=== PATIENT | male | born 1945 | race Caucasian/White ===

== ENCOUNTER 2019-03-10 22:36 | Inpatient (IN) ==
[2019-03-11] MEDS ORDERED: Naloxone 0.4 MG/ML INJ IVP PRN (05:17)
[2019-03-11] MEDS ORDERED: Dextrose Gel 15 GM/37.5 ML TUBE PO PRN ×2 (05:17)
[2019-03-11] MEDS ORDERED: D5% in Water 1,000 ML IVC PRN (05:17)
[2019-03-11] MEDS ORDERED: Acetaminophen 325 MG TABLET PO PRN (05:17)
[2019-03-11] MEDS ORDERED: *HR* Dextrose 50 % in Water (Syg) 50 ML SYRINGE IVP PRN (05:17)
--- NOTE | 2019-03-11 05:29 | Internal Med History&Physical ---
Date of Encounter: 03/11/19 Time of Encounter: 04:30 Internal Medicine - H&P: HPI Chief complaint: right sided weakness/numbness; speech difficulty Admitted From: Hospital to Hospital Transfer Plans for Post Hospital Care: Home History of present illness: Mr. Montgomery is a 73 year old male who presents in transfer from [facility] ER for concerns of stroke/TIA. He presented there last evening with acute onset of right-sided weakness, numbness, and paresthesias in his right hand and arm. This was followed by difficulty with his speech and slurred speech. Symptoms lasted about 5-10 minutes and resolved spontaneously. His called EMS and brought him to the ER. Workup in the ER there was reportedly negative, but I have no lab results other than CT report of the head. Transfer request was made to [place] for further workup and care. Prior to transfer to [place], stroke alert consult was done with [facility] who recommended workup with MRI and further stroke orders. Patient was not a candidate for TPA and/or transport to [facility]. Upon arrival to [place], I saw and examined patient shortly after his arrival. He has complete resolution of his symptoms now. He confirms the above history. He does have prior history of old stroke. He also is diabetic. He also has history of carotid stenosis of his left side requiring carotid endarterectomy. He denies any chest pain, shortness of breath, or any residual neurologic deficits presently. He is a nonsmoker. He does not drink alcohol. His risk factors for stroke include diabetes, hypertension, and prior stroke. Past Med Surg Social Fam HX - Past Medical History Attestation: Yes The following information was validated with the patient. Source: patient, other (limited records from [facility]) Medical history: CVA, diabetes, hypertension Additional medical history: AAA that is being monitored, ischemic bowel resection, surgical infection Psychiatric history: anxiety - Past Surgical History Surgical History: carotid endarterectomy, colectomy Additional surgical history: back surgery, anitra carpal tunnel surgery, left carotid endarterectomy - Social History Smoking Status: Never smoker Smokeless Tobacco Status: No Alcohol use: none Drug use: none Current living situation: Home, With Family Activity Level: Independent ambulation Recent Out of Country Travel Within the Last 8 Weeks: No - Family History Mother Living Status: Cause of : Aortic Aneurysm and heart problems Father Living Status: Cause of : [place] Internal Medicine - H&P: Meds Allergy/AdvReac Type Severity Reaction Status Date / Time ciprofloxacin [From Cipro] Allergy Rash Verified 03/11/19 05:08 morphine Allergy Hallucinati Verified 03/11/19 05:08 ng Penicillins Allergy Swelling Verified 03/11/19 05:08 of Lip/Tongue/Throat - Constitutional Constitutional: no chills, no fever(s), no night sweats - EENT Eyes: no blurry vision, no change in vision Ears: no ear pain, no tinnitus Nose, mouth and throat: no nasal congestion, no sinus pressure, no sore throat - Cardiovascular Cardiovascular ROS IM: no chest pain, no dyspnea, no dyspnea on exertion, no edema, no orthopnea, no syncope - Respiratory Respiratory: no cough, no hemoptysis, no chest congestion, no excessive phlegm production, no change in phlegm color, no pain with cough - Gastrointestinal Gastrointestinal: no abdominal pain, no diarrhea, no hematemesis, no hematochezia, no melena, no nausea, no vomiting - Genitourinary Genitourinary ROS male: no dysuria, no flank pain, no hematuria - Musculoskeletal Musculoskeletal ROS IM: no arthralgias, no back pain, no myalgias - Integumentary Integumentary IM: no rash, no jaundice - Neurological Neurological ROS: abnormal speech, focal weakness, paresthesias, no convulsions, no disequilibrium, no dizziness, no frequent falls, no headache(s) Additional comments: all symptoms resolved within 10 minutes of symptom onset - Psychiatric Psychiatric: no anxiety, no depression - Endocrine Endocrine IM: no cold intolerance, no heat intolerance, no polydipsia, no polyphagia, no polyuria - Allergic/Immunologic Allergic/Immunologic: no GI upset with certain foods - Constitutional Vitals: Temp Pulse Resp BP Pulse Ox 97.9 F 71 16 160/76 96 03/11/19 04:43 03/11/19 04:43 03/11/19 04:43 03/11/19 04:43 03/11/19 04:43 General appearance: Present: cooperative, A&O X 3, pleasant, answers questions appropriately Exam: see below - Head Head exam: Present: atraumatic, normal inspection - Eye Eye exam: Present: EOMI, PERRL. Absent: scleral icterus Pupils: Present: normal accommodation - ENT ENT exam: Present: mucous membranes dry, normal exam, normal oropharynx - Neck Neck exam general surgery: Present: full ROM, supple, trachea midline. Absent: lymphadenopathy, tenderness, nuchal rigidity, thyromegaly - Expanded Neck Exam Neck exam: Present: carotid bruit (left) - Respiratory Respiratory exam: Present: CTAB. Absent: chest wall tenderness, rales, rhonchi, wheezes - Cardiovascular Cardiovascular exam: Present: RRR, +S1, +S2. Absent: diastolic murmur, systolic murmur - GI/Abdominal GI/Abdominal exam: Present: soft. Absent: guarding, hepatomegaly, mass, rebound, splenomegaly, tenderness - Extremities Exam Extremities exam: Present: full ROM, normal capillary refill, warm, radial pulses palpable and symmetrical. Absent: calf tenderness, joint swelling, pedal edema, tenderness - Back Exam Back exam: Absent: CVA tenderness (L), CVA tenderness (R) - Neurological Exam Neurological exam: Present: alert, CN II-XII intact, oriented X3, no focal deficits, strengths equal and symetr throughout. Absent: speech deficit Additional comments: no focal deficits - Psychiatric Psychiatric exam: Present: normal affect, normal mood - Skin Skin exam: Present: dry, intact, warm Internal Med - H&P Results - Labs Labs: I was unable to find any documented lab results from [place]. The exception is CT of the head which showed no acute intracranial abnormality. - Assessment and Plan (1) TIA (transient ischemic attack) Current Visit: Yes Status: Acute Assessment and plan: 1. Symptoms resolved prior to his presentation to ER. 2. Will proceed with stroke protocol. 3. MRI brain, ECHO, Carotid Dopplers. 4. Monitor glucose closely. 5. Monitor on telemetry and obtain baseline EKG. 6. Routine labs and lipid profile ordered. (2) Type 2 diabetes mellitus Current Visit: Yes Status: Chronic Assessment and plan: 1. Will place on SSI and monitor glucose closely. 2. Need to verify home meds and resume as appropriate and safe. Qualifiers: Diabetes mellitus organisation and methods analyst insulin use: without organisation and methods analyst use Diabetes mellitus complication status: with circulatory complication Diabetes mellitus complication detail: with other circulatory complications Qualified Code(s): E11.59 - Type 2 diabetes mellitus with other circulatory complications (3) Hypertension Current Visit: Yes Status: Chronic Assessment and plan: 1. Need to obtain home med list and resume as appropriate. 2. Monitor BP closely and consider starting BP meds if significantly elevated. Qualifiers: Hypertension type: essential hypertension Qualified Code(s): I10 - Essential (primary) hypertension (4) DVT prophylaxis Current Visit: Yes Status: Acute Assessment and plan: 1. Heparin SQ.
[2019-03-11 05:53] LABS: Basophils % 0.5 %; Eosinophils # 0.4 K/mcL (0.0-0.6); Eosinophils % 4.5 %; Hematocrit 41.4 % (37.5-50.1); Hemoglobin 13.6 g/dL (12.9-16.9); Immature Granulocytes % 0.2 % (0-4); Lymphocytes # 2.6 K/mcL (0.6-4.6); Lymphocytes % 30.6 %; Mean Corpuscular HGB Conc 32.9 g/dL (31.6-35.5); Mean Corpuscular Hemoglobin 30.8 pg (28.0-33.3); Mean Corpuscular Volume 93.9 fL (83.0-100.0); Mean Platelet Volume 10.3 fL (9.4-12.4); Monocytes # 0.6 K/mcL (0.0-1.3); Monocytes % 7.5 %; Neutrophils # 4.8 K/mcL (1.6-8.9); Platelet Count 175 K/mcL (140-400); Red Blood Count 4.41 M/mcL (4.19-5.50); Red Cell Distribution Width 13.6 % (11.5-14.5); Segmented Neutrophils % 56.7 %
[2019-03-11 06:01] LABS: INR 1.1; Prothrombin Time 12.4 Seconds (9.4-12.1)
[2019-03-11 06:09] LABS: Albumin 4.3 g/dL (3.5-5.7); Albumin/Globulin Ratio 1.4 (1.1-2.2); Bilirubin,Total 0.5 mg/dL (0.3-1.0); Calcium 10.2 mg/dL (8.6-10.3); Chol/HDL Ratio 3.8 (0-4.9); Magnesium 1.7 mg/dL (1.6-2.6); Phosphorous 3.7 mg/dL (2.7-4.5); Total Protein 7.3 g/dL (6.4-8.9)
[2019-03-11 06:10] LABS: Estimated Average Glucose 160 mg/dl; Hemoglobin A1C 7.2 %
[2019-03-11] MEDS: *HR* Heparin 5,000 UNIT/ML VIAL SQ SCH ×3 (06:21→19:50)
[2019-03-11] MEDS: Aspirin Enteric Coated 81 MG Tablet PO SCH (08:18)
[2019-03-11] MEDS: Insulin LISPRO 300 UNITS/3 ML VIAL SQ SCH ×3 (08:18→17:11)
[2019-03-11] MEDS ORDERED: Artificial Tears SOLN 15 ML BOTTLE OP PRN (12:01)
[2019-03-11] MEDS ORDERED: Ipratropium/Albuterol Neb 3 ML IH PRN (12:01)
[2019-03-11] MEDS ORDERED: cloNIDine HCl 0.1 MG TABLET PO PRN (12:01)
--- NOTE | 2019-03-11 12:24 | Neurology - Consult Note ---
Date of Encounter: 03/11/19 Time of Encounter: 12:21 Assessment and Plan (1) CVA (cerebral vascular accident) Current Visit: Yes Status: Acute Neurology consulted secondary to acute CVA Presented with right-sided weakness and paresthesias as well as slurred speech All symptoms have resolved at this time MRI findings revealing punctate infarcts in the left middle cerebral artery territory; multiple infarcts in the cortex are concerning for embolic source Risk factors include prior history of CVA, DM, uncontrolled HTN, carotid artery disease with prior CVA Episodes of hypertension on admission, chronic poorly controlled blood pressure with average SBP in the 160s-170s Previous stroke in 1999; currently on aspirin and statin medication; recurrent CVA refractory to ASA and statin therapy Patient is back to baseline status and all symptoms have resolved Neuro exam is nonfocal and nonlateralizing PLAN: On ASA, add Plavix; treat more aggressively with consideration of embolic source Continue statin medication Discussed last modification and risk factor management including strict blood pressure and blood glucose C/W neuro assessments per protocol C/W telemetry Echocardiogram pending Carotid duplex pending CTA head and neck pending; if CTA study negative will likely need cardiology f/u for long-term rhythm monitoring Neurology will continue to follow Qualifiers: CVA mechanism: unspecified Qualified Code(s): I63.9 - Cerebral infarction, unspecified History of Present Illness Chief complaint: acute cva HPI: Mr. Montgomery is a 73 year old male in 2016 with the door and deficits, DM, HTN, kidney disease, S/P CEA 2000 and lumbar spinal surgery. He presents as a transfer from [facility] with concerns for stroke. He reports that yesterday evening he had a sudden onset of right hand weakness and within 2-3 minutes the weakness extended into his right arm. Additionally, he notes right arm and hand paresthesias as well as some slurred speech. Symptoms lasted approximately 5-10 minutes and then started to improve. Neurology has been consulted as a stroke workup revealed an acute CVA. MRI of the brain shows a punctate infarct and left middle cerebral artery territory. Currently, the patient states he is back to baseline status without any weakness or paresthesias. Slurred speech has resolved. She denies any headaches, visual changes, dysphagia, dysarthria or current unilateral weakness/paresthesias. Review of vital signs reveals episodes of hypertension with SBP in the 160s. Patient reports chronic high blood pressure with SBP in the 160s-170s. Past Med Surg Social Fam HX - Past Medical History Medical history: CVA, diabetes, hypertension Additional medical history: AAA that is being monitored, ischemic bowel resection, surgical infection Psychiatric history: anxiety - Past Surgical History Surgical History: carotid endarterectomy, colectomy Additional surgical history: back surgery, anitra carpal tunnel surgery, left carotid endarterectomy - Social History Smoking Status: Never smoker Smokeless Tobacco Status: No Alcohol use: none Drug use: none - Family History Mother Living Status: Cause of : Aortic Aneurysm and heart problems Father Living Status: Cause of : [place] Medications and Allergies Acetaminophen [Pain Relief] 100 mg PO TID PRN 03/11/19 [History] Aspirin [Lo-Dose Aspirin EC] 81 mg PO DAILY 03/11/19 [History] Atorvastatin Calcium [Lipitor] 40 mg PO QPM 03/11/19 [History] Baclofen [Lioresal] 10 mg PO TID 03/11/19 [History] Carboxymethylcellulose Sodium [Refresh Celluvisc] 1 each OP PRN PRN 03/11/19 [History] Cholecalciferol (Vitamin D3) [Cholecalciferol] 1 gm MC DAILY 03/11/19 [History] CloNIDine HCl [Kapvay] 0.1 mg PO PRN PRN 03/11/19 [History] Clotrimazole 1% CRM [Lotrimin 1%] 1 appl TP BID PRN 03/11/19 [History] Docusate Sodium [Doc-Q-Lace] 100 mg PO BID 03/11/19 [History] Finasteride [Proscar] 5 mg PO DAILY 03/11/19 [History] Insulin ASPART [Novolog Flexpen] 5 unit SQ QAM 03/11/19 [History] Insulin ASPART [Novolog Flexpen] 10 unit SQ 1200,1800 03/11/19 [History] Insulin Glargine,Hum.rec.anlog [Lantus Solostar] 50 unit SQ BID 03/11/19 [History] Ipratropium/Albuterol Neb [Duoneb] 3 ml IH Q6HR PRN 03/11/19 [History] Lidocaine Patch [Lidoderm 5% patch] 1 each TP Q24H PRN 03/11/19 [History] Lisinopril [Zestril] 10 mg PO DAILY 03/11/19 [History] Magnesium Oxide [Magnesium] 400 mg PO BID 03/11/19 [History] Menthol [Biofreeze] 1 appl TP QID PRN 03/11/19 [History] Metoprolol Succinate [Toprol Xl] 25 mg PO DAILY 03/11/19 [History] Nystatin Cream [Mycostatin Cream] 1 appl TP DAILY 03/11/19 [History] Omeprazole [PriLOSEC] 40 mg PO DAILY 03/11/19 [History] Potassium 3 tab PO DAILY 03/11/19 [History] Pregabalin [Lyrica] 150 mg PO BID PRN 03/11/19 [History] Tamsulosin HCl [Flomax] 0.4 mg PO HS 03/11/19 [History] Allergy/AdvReac Type Severity Reaction Status Date / Time ciprofloxacin [From Cipro] Allergy Rash Verified 03/11/19 05:08 morphine Allergy Hallucinati Verified 03/11/19 05:08 ng Penicillins Allergy Swelling Verified 03/11/19 05:08 of Lip/Tongue/Throat All Systems: The remainder of the systems were reviewed and are negative Review of Systems: REVIEW OF SYSTEMS NEUROLOGIC: Negative for any blurry vision, blind spots, double vision, facial asymmetry, dysphagia, + Right arm and hand paresthesias and weakness. Slurred speech. (All symptoms have resolved) CARDIAC: Negative for any chest pain, dyspnea, palpitations Physical Examination - Vital Signs Vital Signs: Initial Vital Signs Temp Pulse Resp BP Pulse Ox 97.9 F 71 16 160/76 96 03/11/19 04:43 03/11/19 04:43 03/11/19 04:43 03/11/19 04:43 03/11/19 04:43 - Exam Exam: Examination: General Examination: *CONSTITUTIONAL: Alert and oriented x3, no acute distress *GENERAL APPEARANCE OF PATIENT appears healthy and well groomed *EYES: pupils equal, round, reactive to light and accommodation, conj unctiva clear without masses or ulcerations, fundi normal. *CARDIOVASCULAR no peripheral edema, distal temperature normal, dorsalis pedis pulses normal. Musculoskeletal: *GAIT AND STATION normal, with normal Romberg testing, no abnormalities such as broad base gait or spasticity *ASSESSMENT OF MUSCLE STRENGTH IN THE UPPER AND LOWER EXTREMITIES bilateral deltoid, bicep, tricep, environmental manager strength, hip flexors ,anterior tibialis, dorsoflexion of the foot 5/5 *MUSCLE TONE IN THE UPPER AND LOWER EXTREMITIES normal. No abnormal movements, fasciculations or atrophy identified. Neurological: *ORIENTATION to person, situation, time and place *RECURRENT AND REMOTE MEMORY intact *ATTENTION AND CONCENTRATION are normal *LANGUAGE FUNCTION no significant aphasia or dysarthia was noted. *FUND OF KNOWLEDGE aware of current events, past history, vocabulary *MENTAL attention span and concentration normal. *CN II optic fundi were normal, no papilledema noted. *CN III,IV, PERRLA extraocular eye movements were full, no nystagmus and no ptosis noted. *CN V shows normal sensation and jaw opens symmetrically. *CN VII shows normal facial movement symmetrically, upper and lower bilaterally. *CN VIII shows no significant hearing loss on exam *CN IX,,X palate elevated symmetrically *CN XI normal strength in the sternocleidomastoid muscles, symmetrical shoulder shrugging. *CN XII tongue protruded in the midline, with normal strength and movement. *SENSORY EXAMINATION light touch intact *REFLEXES: deep tendon reflexes were normal and symmetrical , grade 2/4 diffusely, no pathological reflexes were noted. *CEREBELLAR TESTING normal finger to nose, heel/knee/bergman *PAIN LEVEL 0/10 Results - Laboratory Findings CBC and BMP: 03/11/19 05:32 03/11/19 05:32 Abnormal lab findings: Abnormal lab results PT 12.4 Seconds (9.4-12.1) H 03/11/19 05:32 APTT 37.8 Seconds (26.0-36.0) H 03/11/19 05:32 BUN 34 mg/dL (8-23) H 03/11/19 05:32 1.41 mg/dL (0.70-1.30) H 03/11/19 05:32 Est GFR (Non-Af Amer) 49 (> 60) L 03/11/19 05:32 Glucose 124 mg/dL (70-105) H 03/11/19 05:32 POC Glucose 145 mg/dL (70-99) H 03/11/19 05:59 7.2 % (-5.6) H 03/11/19 05:32 303 (280-300) H 03/11/19 05:32 Triglycerides 159 mg/dL (< 150) H 03/11/19 05:32 VLDL Cholesterol, Calc 32 mg/dL (< 31) H 03/11/19 05:32 - Diagnostic Findings Additional findings: MR/MR head/brain wo con IMPRESSION: Punctate acute infarcts in the left middle cerebral artery territory. Consult Discharge Plan - Plan [facility]: [facility] [Primary Care Provider] -
[2019-03-11] MEDS ORDERED: Isovue-370 500 ML BOTTLE IVP ONE (13:21)
--- NOTE | 2019-03-11 13:37 | Internal Med Progress Note ---
Hospitalist Progress Note - Encounter Date of Encounter: 03/11/19 Time of Encounter: 13:00 - Subjective Interval History: Mr. Montgomery is a 73 year old male who presented to our hospital in transfer from [facility] ER for concerns of stroke/TIA. He presented there last evening with acute onset of right-sided weakness, numbness, and paresth esias in his right hand and arm. This was followed by difficulty with his speech and slurred speech. Symptoms lasted about 5-10 minutes and resolved spontaneously. Prior to transfer to [place], stroke alert consult was done with [facility] who recommended workup with MRI and further stroke orders. Patient was not a candidate for TPA and/or transport to [facility]. He was admitted in the hospital and placed him on general assistant. He denied anymore weakness in Rt side. He denied any slurred speech now. - Exam Vitals: Temp Pulse Resp BP Pulse Ox 98.0 F 75 16 156/74 97 03/11/19 11:40 03/11/19 11:40 03/11/19 11:40 03/11/19 11:40 03/11/19 11:40 Exam: Gen: Alert, awake, Oriented to time,place and person Chest: Diminished breath sounds B/L, No wheezing, No crackles, No rales Heart: S1S2+ RRR No murmurs Abd: Soft, NT, BS +, No organomegaly Ext: No edema, pulses are palpable, No calf tenderness Neuro : Motor strength 5/5 in all ext, No sensory loss. LOAD TALLIER 2-12 intact Skin: No rash. - Assessment and Plan (1) CVA (cerebral vascular accident) Current Visit: Yes Status: Acute Assessment and Plan: Reviewed his MRI - Punctate acute infarcts in the left middle cerebral artery territory. Pt failed on ASA therapy so added Plavix to his anti platelet regimen Inc Lipitor to 80mg HS Neuro consulted.. appreciate recommendations Will f/u on 2 D Echo and Carotid doppler PT / OT eval Patient does need to stay in the hospital more than 2 midnights due to his complex medical problems. So we will change him to full admission today. I did review my colleague Dr. Sanabria's H & P including HPI, PMH, PSH, FH, SH, and ROS no changes noticed (2) Type 2 diabetes mellitus Current Visit: Yes Status: Chronic Assessment and Plan: HbA1C - 7.1 on ADA diet on ISS (3) Hypertension Current Visit: Yes Status: Chronic Assessment and Plan: fairly controlled resumed home meds will place him on IV hydralazine PRN (4) DVT prophylaxis Current Visit: Yes Status: Acute Assessment and Plan: Heparin SQ - Time Spent with Patient Total time spent is greater than 50% in coordination of care (as documented) at patient's floor/unit and/or counseling patient: Internal Medicine: Result - Labs CBC & Chem 7: 03/11/19 05:32 03/11/19 05:32 Labs: Short CBC 03/11/19 Range/Units 05:32 WBC 8.5 (4.3-11.1) K/mcL Hgb 13.6 (12.9-16.9) g/dL Hct 41.4 (37.5-50.1) % Plt Count 175 (140-400) K/mcL Neutrophils # 4.8 (1.6-8.9) K/mcL BMP 03/11/19 05:32 Sodium 142 Potassium 4.0 Chloride 106 Carbon Dioxide 25 BUN 34 H Creatinine 1.41 H Glucose 124 H Calcium 10.2 Cardiac Enzymes 03/11/19 03/11/19 Range/Units 05:32 11:14 Troponin I < 0.03 < 0.03 (< 0.04) ng/mL Liver Function 03/11/19 Range/Units 05:32 Total Bilirubin 0.5 (0.3-1.0) mg/dL AST 22 (13-39) Units/L ALT 31 (7-52) Units/L Alkaline Phosphatase 79 (34-104) Units/L Albumin 4.3 (3.5-5.7) g/dL - ABG Interpretation ABG results: PT/INR, D-dimer PT 12.4 Seconds (9.4-12.1) H 03/11/19 05:32 - Impressions Impressions Brain MRI 03/11/19 05:17 IMPRESSION: Punctate acute infarcts in the left middle cerebral artery territory. D/ / 03/11/2019 10:30:33 Xavi Ames MD / [email or web address] Interpreting Provider: Xavi Ames MD Consult Discharge Plan - Plan [facility]errals: [facility] [Primary Care Provider] - (1) CVA (cerebral vascular accident) Qualifiers: CVA mechanism: unspecified Qualified Code(s): I63.9 - Cerebral infarction, unspecified (2) Type 2 diabetes mellitus Qualifiers: Diabetes mellitus half-way insulin use: without termite control service representative use Diabetes mellitus complication status: with circulatory complication Diabetes mellitus complication detail: with other circulatory complications Qualified Code(s): E11.59 - Type 2 diabetes mellitus with other circulatory complications (3) Hypertension Qualifiers: Hypertension type: essential hypertension Qualified Code(s): I10 - Essential (primary) hypertension
[2019-03-11] MEDS ORDERED: 0.9 % Sodium Chloride 1,000 ML IVC SCH (13:45)
[2019-03-11] MEDS: Baclofen 10 MG TABLET PO SCH ×2 (14:51→19:50)
[2019-03-11] MEDS: Magnesium Oxide 400 MG TABLET PO SCH (19:50)
[2019-03-12] MEDS ORDERED: Ondansetron 4 MG/2 ML VIAL IVP ONE (04:36)
[2019-03-12] MEDS: *HR* Heparin 5,000 UNIT/ML VIAL SQ SCH ×2 (05:46→15:00)
[2019-03-12] MEDS: Insulin LISPRO 300 UNITS/3 ML VIAL SQ SCH ×2 (08:03→11:47)
[2019-03-12] MEDS ORDERED: Ondansetron 4 MG/2 ML VIAL IVP PRN (08:08)
[2019-03-12] MEDS ORDERED: *HR* LORazepam 2 MG/ML VIAL IVP ONE (08:10)
[2019-03-12] MEDS: Magnesium Oxide 400 MG TABLET PO SCH (08:36)
[2019-03-12] MEDS: Aspirin Enteric Coated 81 MG Tablet PO SCH (08:36)
[2019-03-12] MEDS: Baclofen 10 MG TABLET PO SCH ×2 (08:37→16:20)
[2019-03-12] MEDS ORDERED: Nystatin Cream 15 GM TUBE TP SCH (09:00)
[2019-03-12] MEDS ORDERED: Metoprolol XL (24 HR) Succ 25 MG TAB.ER.24H PO SCH (09:00)
[2019-03-12] MEDS ORDERED: Finasteride 5 MG TABLET PO SCH (09:00)
[2019-03-12] MEDS ORDERED: Cholecalciferol (D-3) 1,000 UNIT TABLET PO SCH (09:00)
[2019-03-12 09:42] LABS: BUN/Creatinine Ratio 19 (6-26); Blood Urea Nitrogen 24 mg/dL (8-23); Calcium 10.1 mg/dL (8.6-10.3); Carbon Dioxide 22 mEq/L (23-29); Chloride 105 mEq/L (98-107); Glucose 210 mg/dL (70-105); Osmolality,Calculated 296 (280-300); Potassium 3.9 mEq/L (3.5-5.1); Sodium 138 mEq/L (136-145); eGFR For Non-African Americans 56 (> 60)
[2019-03-12 11:08] VITALS: BP 139/65
--- NOTE | 2019-03-12 12:01 | Neurology Progress Note ---
Date of Encounter: 03/12/19 Time of Encounter: 11:59 Assessment and Plan (1) CVA (cerebral vascular accident) Current Visit: Yes Status: Acute Neurology consulted secondary to acute CVA Presented with right-sided weakness and paresthesias as well as slurred speech MRI findings revealing punctate infarcts in the left middle cerebral artery territory; multiple infarcts in the cortex are concerning for embolic vs thromboembolic source Episodes of hypertension on admission, chronic poorly controlled blood pressure with average SBP in the 160s-170s Previous stroke in 1999; currently on aspirin and statin medication; recurrent CVA refractory to ASA and statin therapy Patient is back to baseline status and all symptoms have resolved Neuro exam is nonfocal and nonlateralizing and the patient is back to baseline state PLAN: C/W DAPT (ASA, Plavix)-aggressive treatment considering CTA findings and risk for thromboembolic versus embolic source C/w statin medication Discussed aggressive risk factor management Discussed f/u with [facility] and [facility] team as well as [facility] f/[facility]. Echocardiogram - 65% Mild LVDD, No PFO Carotid duplex - bilateral carotid duplex appears to show 40-59% stenosis in the right distal ICA and 60-79% stenosis in the left bifurcation CTA head and neck - acute and chronic medical infarcts within the high left frontal parietal lobe. A 60% stenosis of the distal left common carotid artery due to calcified and noncalcified plaque. 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 No large vessel occlusion detected in the head. OK to d/c at the discretion of the primary team. Neurology will sign-off Qualifiers: CVA mechanism: unspecified Qualified Code(s): I63.9 - Cerebral infarction, unspecified Subjective Principal diagnosis: Acute CVA Interval history: Patient seen in follow-up for acute CVA. Has a history of left CVA in 2000. CT angiogram of the neck and head showed 60% stenosis of the distal common carotid artery. Concerning for thromboembolic event versus embolic event. Started on DAPT yesterday. Denies any new neurological symptoms overnight. Condition remains stable. Discussed exam findings and workup. Further, discussed risk factor modification and medical management and the need for close follow-up with [facility] providers. Objective - Constitutional Vitals: Temp Pulse Resp BP Pulse Ox 98.6 F 79 18 139/65 96 03/12/19 11:07 03/12/19 11:07 03/12/19 11:07 03/12/19 11:07 03/12/19 11:07 Exam: Examination: General Examination: *CONSTITUTIONAL: Alert and oriented x3, no acute distress *GENERAL APPEARANCE OF PATIENT appears healthy and well groomed *EYES: pupils equal, round, reactive to light and accommodation, conjunctiva clear without masses or ulcerations, fundi normal. *CARDIOVASCULAR no peripheral edema, distal temperature normal, dorsalis pedis pulses normal. Musculoskeletal: *GAIT AND STATION normal, with normal Romberg testing, no abnormalities such as broad base gait or spasticity *ASSESSMENT OF MUSCLE STRENGTH IN THE UPPER AND LOWER EXTREMITIES bilateral deltoid, bicep, tricep, triple valve tester strength, hip flexors ,anterior tibialis, dorsoflexion of the foot 5/5 *MUSCLE TONE IN THE UPPER AND LOWER EXTREMITIES normal. No abnormal movements, fasciculations or atrophy identified. Neurological: *ORIENTATION to person, situation, time and place *RECURRENT AND REMOTE MEMORY intact *ATTENTION AND CONCENTRATION are normal *LANGUAGE FUNCTION no significant aphasia or dysarthia was noted. *FUND OF KNOWLEDGE aware of current events, past history, vocabulary *MENTAL attention span and concentration normal. *CN II optic fundi were normal, no papilledema noted. *CN III,IV, PERRLA extraocular eye movements were full, no nystagmus and no ptosis noted. *CN V shows normal sensation and jaw opens symmetrically. *CN VII shows normal facial movement symmetrically, upper and lower bilaterally. *CN VIII shows no significant hearing loss on exam *CN IX,,X palate elevated symmetrically *CN XI normal strength in the sternocleidomastoid muscles, symmetrical shoulder shrugging. *CN XII tongue protruded in the midline, with normal strength and movement. *SENSORY EXAMINATION light touch intact *REFLEXES: deep tendon reflexes were normal and symmetrical , grade 2/4 diffusely, no pathological reflexes were noted. *CEREBELLAR TESTING normal finger to nose, heel/knee/bergman *PAIN LEVEL 0/10 Results - Laboratory Findings CBC and BMP: 03/11/19 05:32 03/12/19 09:09 Abnormal lab findings: Abnormal lab results PT 12.4 Seconds (9.4-12.1) H 03/11/19 05:32 APTT 37.8 Seconds (26.0-36.0) H 03/11/19 05:32 Carbon Dioxide 22 mEq/L (23-29) L 03/12/19 09:09 BUN 24 mg/dL (8-23) H 03/12/19 09:09 1.41 mg/dL (0.70-1.30) H 03/11/19 05:32 Est GFR (Non-Af Amer) 56 (> 60) L 03/12/19 09:09 Glucose 210 mg/dL (70-105) H 03/12/19 09:09 POC Glucose 209 mg/dL (70-99) H 03/11/19 20:10 7.2 % (-5.6) H 03/11/19 05:32 303 (280-300) H 03/11/19 05:32 Triglycerides 159 mg/dL (< 150) H 03/11/19 05:32 VLDL Cholesterol, Calc 32 mg/dL (< 31) H 03/11/19 05:32 Consult Discharge Plan - Plan [facility]errals: [facility] [Primary Care Provider] -
--- NOTE | 2019-03-12 12:36 | Discharge Summary ---
- NOTES TO OUTPATIENT PROVIDER Notes to Outpatient Provider: f/u with PCP in one week. f/u with Neurology in 1-2 weeks. Please start taking Plavix 75mg Daily along with your Aspirin. Also increased your cholesterol medication Lipitor to 80 mg HS. Orders not resulted at time of discharge: Pending orders 03/11/19 06:00 ECG 12 lead ECG [ECG] AM 0600 Date of Encounter: 03/12/19 Time of Encounter: 12:35 - Discharge Diagnosis (1) CVA (cerebral vascular accident) Priority: Primary Status: Acute Qualifiers: CVA mechanism: unspecified Qualified Code(s): I63.9 - Cerebral infarction, unspecified (2) Type 2 diabetes mellitus Priority: Secondary Status: Chronic Qualifiers: Diabetes mellitus manager terminal insulin use: without mcfp use Diabetes mellitus complication status: with circulatory complication Diabetes mellitus complication detail: with other circulatory complications Qualified Code(s): E11.59 - Type 2 diabetes mellitus with other circulatory complications (3) Hypertension Priority: Secondary Status: Chronic Qualifiers: Hypertension type: essential hypertension Qualified Code(s): I10 - Essential (primary) hypertension (4) DVT prophylaxis Priority: Secondary Status: Acute (5) HLD (hyperlipidemia) Priority: Secondary Status: Acute Qualifiers: Hyperlipidemia type: unspecified Qualified Code(s): E78.5 - Hyperlipidemia, unspecified Hospital course: Mr. Montgomery is a 73 year old male who presented to our hospital in transfer from [facility] ER for concerns of stroke/TIA. He presented there last evening with acute onset of right-sided weakness, numbness, and paresthesias in his right hand and arm. This was followed by difficulty with his speech and slurred speech. Symptoms lasted about 5-10 minutes and resolved spontaneously. Prior to transfer to [facility], stroke alert consult was done with [facility] who recommended workup with MRI and further stroke orders. Patient was not a candidate for TPA and/or transport to [facility]. He was admitted in the hospital and placed him on hall monitor. He denied anymore weakness in Rt side. He denied any slurred speech now. His Brain MRI showed Punctate acute infarcts in the left middle cerebral artery territory. Her CTA of Head and Neck showed acute and chronic micro infarcts within the high left frontoparietal lobe and 60% stenosis of the distal left common carotid artery due to calcified and noncalcified plaque. His 2 D Echo showed preserved LEVF. We started the pt on DAPT therapy with ASA and Plavix and increased his Lipitor to 80mg. Pt was evaluated by PT / OT, no recommendations made. Will d/c him home in stable condition today. - Time Spent with Patient Total time spent providing and/or coordinating discharge services: - Discharge Medications Prescriptions: No Action Acetaminophen [Pain Relief] 100 mg PO TID PRN PRN Reason: Pain Aspirin [Lo-Dose Aspirin EC] 81 mg PO DAILY Baclofen [Lioresal] 10 mg PO TID Carboxymethylcellulose Sodium [Refresh Celluvisc] 1 each OP PRN PRN PRN Reason: Dry Eyes Cholecalciferol (Vitamin D3) [Cholecalciferol] 1 gm MC DAILY CloNIDine HCl [Kapvay] 0.1 mg PO PRN PRN PRN Reason: Hypertension Clotrimazole 1% CRM [Lotrimin 1%] 1 appl TP BID PRN PRN Reason: Rash on toenail Finasteride [Proscar] 5 mg PO DAILY Insulin Glargine,Hum.rec.anlog [Lantus Solostar] 50 unit SQ BID Ipratropium/Albuterol Neb [Duoneb] 3 ml IH Q6HR PRN PRN Reason: Wheezing Magnesium Oxide [Magnesium] 400 mg PO BID Nystatin Cream [Mycostatin Cream] 1 appl TP DAILY Potassium 3 tab PO DAILY Pregabalin [Lyrica] 150 mg PO BID PRN PRN Reason: Pain Tamsulosin HCl [Flomax] 0.4 mg PO HS Atorvastatin Calcium [Lipitor] 40 mg PO QPM Docusate Sodium [Doc-Q-Lace] 100 mg PO BID Insulin ASPART [Novolog Flexpen] 5 unit SQ QAM Insulin ASPART [Novolog Flexpen] 10 unit SQ 1200,1800 Lidocaine Patch [Lidoderm 5% patch] 1 each TP Q24H PRN PRN Reason: Pain Lisinopril [Zestril] 10 mg PO DAILY Menthol [Biofreeze] 1 appl TP QID PRN PRN Reason: Muscle Pain Metoprolol Succinate [Toprol Xl] 25 mg PO DAILY Omeprazole [PriLOSEC] 40 mg PO BID Home Medications: Acetaminophen [Pain Relief] 100 mg PO TID PRN 03/11/19 [History] Aspirin [Lo-Dose Aspirin EC] 81 mg PO DAILY 03/11/19 [History] Baclofen [Lioresal] 10 mg PO TID 03/11/19 [History] Carboxymethylcellulose Sodium [Refresh Celluvisc] 1 each OP PRN PRN 03/11/19 [History] Cholecalciferol (Vitamin D3) [Cholecalciferol] 1 gm MC DAILY 03/11/19 [History] CloNIDine HCl [Kapvay] 0.1 mg PO PRN PRN 03/11/19 [History] Clotrimazole 1% CRM [Lotrimin 1%] 1 appl TP BID PRN 03/11/19 [History] Docusate Sodium [Doc-Q-Lace] 100 mg PO BID 03/11/19 [History] Finasteride [Proscar] 5 mg PO DAILY 03/11/19 [History] Insulin ASPART [Novolog Flexpen] 5 unit SQ QAM 03/11/19 [History] Insulin ASPART [Novolog Flexpen] 10 unit SQ 1200,1800 03/11/19 [History] Insulin Glargine,Hum.rec.anlog [Lantus Solostar] 50 unit SQ BID 03/11/19 [History] Ipratropium/Albuterol Neb [Duoneb] 3 ml IH Q6HR PRN 03/11/19 [History] Lidocaine Patch [Lidoderm 5% patch] 1 each TP Q24H PRN 03/11/19 [History] Lisinopril [Zestril] 10 mg PO DAILY 03/11/19 [History] Magnesium Oxide [Magnesium] 400 mg PO BID 03/11/19 [History] Menthol [Biofreeze] 1 appl TP QID PRN 03/11/19 [History] Metoprolol Succinate [Toprol Xl] 25 mg PO DAILY 03/11/19 [History] Nystatin Cream [Mycostatin Cream] 1 appl TP DAILY 03/11/19 [History] Omeprazole [PriLOSEC] 40 mg PO BID 03/11/19 [History] Potassium 3 tab PO DAILY 03/11/19 [History] Pregabalin [Lyrica] 150 mg PO BID PRN 03/11/19 [History] Tamsulosin HCl [Flomax] 0.4 mg PO HS 03/11/19 [History] Atorvastatin Calcium [Lipitor] 80 mg PO QPM #30 tablet 03/12/19 [Rx] Clopidogrel [Plavix] 75 mg PO DAILY #30 tablet 03/12/19 [Rx] Allergies/Adverse Reactions: Allergy/AdvReac Type Severity Reaction Status Date / Time ciprofloxacin [From Cipro] Allergy Rash Verified 03/11/19 05:08 morphine Allergy Hallucinati Verified 03/11/19 05:08 ng Penicillins Allergy Swelling Verified 03/11/19 05:08 of Lip/Tongue/Throat Date of admission: 03/11/19 15:16 Primary care physician: [facility] Consults: 03/11/19 10:38 Consult to Neurology [CONS] Routine Consulting Provider: Neurology [facility] Reason for Consult: Acute CVA Time Notified: 10:39 Call Completed: Yes 03/11/19 11:40 Consult to Occupational Therapy [CONS] Routine Comment: Evaluate, develop and implement POC Reason for Consult: STROKE Does patient have active BEDREST order?: No Is patient medically & hemodynamically stable?: Yes Consult to Physical Therapy [CONS] Routine Comment: Evaluate, develop and implement POC Reason for Consult: STROKE Does patient have active BEDREST order?: No Is patient medically & hemodynamically stable?: Yes - Constitutional Vitals: Temp Pulse Resp BP Pulse Ox 98.6 F 79 18 139/65 96 03/12/19 11:07 03/12/19 11:07 03/12/19 11:07 03/12/19 11:07 03/12/19 11:07 General appearance: Present: cooperative, A&O X 3, pleasant, answers questions appropriately Exam: Gen: Alert, awake, Oriented to time,place and person Chest: Diminished breath sounds B/L, No wheezing, No crackles, No rales Heart: S1S2+ RRR No murmurs Abd: Soft, NT, BS +, No organomegaly Ext: No edema, pulses are palpable, No calf tenderness Neuro : no focal neuro deficits Skin: No rash. - Patient Status Disposition: Home, Self-Care Condition: Good Overall status at discharge: patient is back to baseline - Discharge Instructions Instructions: Transient Ischemic Attack (DC) Follow Up With: [facility] [Primary Care Provider] - Additional Instructions: Follow-up appointments: If there is not an appointment listed below, please call your physician and schedule a follow-up appointment. If you have congestive heart failure and your symptoms return, make an appointment with your physician. Medication List: Carry an up to date list of medications you are taking at all time. We have given you an updated medication list including any new medications that you have been prescribed. Please provide that list to your primary provider Symptoms: If your condition changes or you experience any of the following symptoms, notify your physician immediately: Unusual or worsening pain, fever, persistent nausea and vomiting, bleeding, increase in swelling (especially in your legs), sudden weight gain, extreme dizziness, chest pain, increased drainage or redness from a wound or incision. Go to the emergency department if you experience a problem with breathing. Weights: If you have a history of swelling or shortness of breath, weigh yourself daily and notify your physician if you have a weight gain of two or more pounds in one day or 5 or more pounds in a week. If you experience any of the warning signs for stroke: Sudden numbness or weakness of the face, arm or leg; especially on one side of the body, sudden confusion, trouble speaking or understanding, sudden trouble seeing in one or both eyes, sudden trouble walking, dizziness, loss of balance or coordination, sudden sever headache with no cause; Call 911 or go to the emergency room. Stroke is a medical emergency. Some risk factors for stroke: Age, cigarette smoking, diabetes, excessive alcohol consumption, family history, high blood pressure, overweight, physical inactivity, prior stroke, heart attack, diagnosis of carotid artery stenosis or other artery disease. If you smoke, STOP: Smoking or tobacco use significantly increases your risk of heart and lung disease. Your chance of disease greatly increases if you continue to smoke. For more information, call the [place] tobacco quit line for smoking cessation 2-215-LXKC-NOW ( ) - Diet and Activity Activity: increase activity as tolerated Diet: low salt diet
== END 2019-03-12 17:44 | disposition home or self-care (01) | DRG 65 ==
LOC: 3BNU
PROVIDERS: ADMIT Family Medicine; ATTEND Family Medicine